=== PATIENT | male | born 1965 | race Caucasian/White ===

== ENCOUNTER 2017-05-02 21:48 | Inpatient (IN) | payer OTHER ==
[~2017-05-02] VITALS: Ht 177.8 cm; Wt 69.7 kg
[~2017-05-02 21:48] MED LIST: TRAM50TA2 PO
[2017-05-02 21:52] VITALS: BP 178/126; PULSE 132; RESP 18; O2SAT 95
--- NOTE | 2017-05-02 22:13 | ED.REPORT ---
HPI-Overdose/Alcohol Toxicity Date of Service May 02, 2017 ED Provider: Dr. Saeid Holt M.D. The patient is a 51 year old male with a medical history including RI, GERD, anxiety, and alcohol abuse who presents to the ED via EMS requesting assistance with alcohol detox. The patient has reportedly been drinking for the past week. He is unsure when he last drank alcohol. The patient is concerned he is "out of his mind," reporting confusion and a headache. He denies suicidal ideation or other symptoms. EMS found the patient with a BP of 160/100, a pulse of 138, and a respiration rate of 97% on RA. The patient has had alcohol detox attempts in the past. Nursing Notes Stated Complaint: DETOX Chief Complaint: Substance Abuse Nursing Notes Reviewed: Yes Allergies: Coded Allergies: No Known Allergies (Unverified Allergy, Unknown, 05/02/17) Scheduled PRN Tramadol (Tramadol) 50 Mg Tablet 50 MG PO TID PRN PRN For Pain General Time Seen by Provider: 22:11 Chief Complaint Other (Alcohol Detox Request) Hx Obtained From: Patient, EMS Arrived By: Ambulance Onset Occurred: 1 week ago Symptom Duration: Since onset Location: : Head Quality: Aching Severity: Current: Moderate Severity: Maximum: Moderate Pertinent Negative: Relieved by nothing Related History: Reports: Alcoholism Immunizations: Tetanus up to date Recent Healthcare: No recent doctor visit Similar Sx Previous: Yes Past Medical History Past Medical History Substance abuse (EtOH)- pt is a longstanding alcoholic Myocardial infarction at age 33 Skull fx at age 29 GERD Anxiety Past Surgical History Denies Family History Denies Smoking History Current Every Day Smoker, Current Some Day Smoker Social History Alcohol Use: >5 per day Drug Use: Denies drug use Ambulatory Status Independent Review of Systems Unable to Obtain ROS Patient condition, Intoxicated Physical Exam Initial Vital Signs Vital Signs (First) Date Time Temp Pulse Resp B/P Pulse Ox O2 Delivery O2 Flow Rate FiO2 05/02/17 21:52 36.6 132 18 178/126 95 05/03/17 00:06 Room Air Initial VS: Reviewed, Vital signs abnormal Head / Eyes: Atraumatic, Normocephalic Neck: Supple, Full range of motion General/Constitutional: Awake, Alert Appearance / Presentation: Positive: Intoxicated Smells of alcohol Respiratory / Chest: Breath sounds NL, Breath sounds = bilat, No respiratory distress Cardiovascular: Regular rhythm, Heart sounds NL Heart Rate / Rhythm: Positive: Tachycardia Abdomen: Soft Tenderness/Guarding/Rebound: Positive: Tender RUQ... Tender liver edge palpable Psychiatric: Not suicidal Patient makes repetitive statements and asks repetitive questions ENT: Airway patent Mouth: Positive: Mucous membranes dry Dry, chapped lips Skin: No rash, Warm, Dry Interpretation & Diagnostics BREATHALYZER: 285 at 22:14 199 at 01:09 BEDSIDE URINE DRUG SCREEN: Negative Lab Results Interpretation Result Diagram: 05/02/17225705/02/17 225 Test 05/02/17 22:58 05/03/17 01:00 White Blood Count 7.4th/mm3 (3.8-10.1) Red Blood Count 4.82mil/mm3 (4.40-5.80) Hemoglobin 15.6g/dL (13.8-17.2) Hematocrit 43.8% (41.0-50.0) Mean Corpuscular Volume 90.9fL (81-100) Mean Corpuscular Hemoglobin 32.4pg (27.0-35.0) Mean Corpuscular Hemoglobin Concent 35.6% (32.0-37.0) Red Cell Distribution Width 12.3% (12.3-15.4) Platelet Count 223bil/L (150-400) Neutrophils (%) (Auto) 56.5% (40-74) Lymphocytes (%) (Auto) 32.2% (14-46) Monocytes (%) (Auto) 10.6% (4-12) Eosinophils (%) (Auto) 0% (0-5) Basophils (%) (Auto) 0.4% (0-3) Prothrombin Time 9.4sec (8.1-12.5) Prothromb Time International Ratio 0.88ratio Sodium Level 142mEq/L (134-144) Potassium Level 4.4mEq/L (3.5-5.2) Chloride Level 97mEq/L (97-108) Carbon Dioxide Level 25mmol/L (18-29) Blood Urea Nitrogen 10mg/dL (6-24) Creatinine 0.90mg/dL (0.76-1.27) Estimat Glomerular Filtration Rate 95mL/min (>59) Glucose Level 100mg/dL (60-99) Calcium Level 9.1mg/dL (8.5-10.1) Phosphorus Level 3.7mg/dL (2.5-4.9) Magnesium Level 1.9mg/dL (1.6-2.6) Total Bilirubin 0.3mg/dL (0.0-1.2) Aspartate Amino Transf (AST/SGOT) 38U/L (0-50) Alanine Aminotransferase (ALT/SGPT) 26U/L (0-44) Alkaline Phosphatase 78U/L (25-150) Total Protein 8.3g/dL (6.4-8.4) Albumin 4.6g/dL (3.4-5.0) Lipase 49U/L (13-60) Hold Blunt Top Tube Received (Received) Hold Urine Received (Received) Lab values outside NL range: no clinical significance. ECG Interpretation ECG Interpretation: Sinus tachycardia rate 113 Time: 22:45 Interpreted by: ED physician Re-Eval/Medical Decision Med Decision/Clinical Course 51-year-old male with chronic alcoholism presents after a 7 day binge. He desires to detox but has had medically complicated detox in the past. He denies any which are related seizures. He has been drinking about 2/5 a day. Banana bag was ordered and labs were drawn. He received the liter of saline with multivitamins. Labs were normal. He was placed on CIWA protocol. He will be admitted to the hospitalist service for detox and then transferred to inpatient if possible. Source of Hx: Old records Re-Evaluation/Progress : Time of Eval: 01:23 Patient Status: Condition improved Re-Evaluation/Progress Note: Patient is tremulous and withdrawing. Discussed with patient lab results, diagnosis, and plan for admit. Patient agrees with plan for care and all questions were addressed. Consultation : Referral / Consult Name: Anthony Oseguera MD Consulted With: Hospitalist Call Returned at: 01:32 Terminal Worker: Agrees with eval, Agrees with plan, Accepts admit Counseled Regarding: Diagnosis, Lab results, Need for admission Discharge & Departure Impression: Primary Impression: Alcohol withdrawal Complication of substance-induced condition: uncomplicated Qualified Code: F10.230 - Alcohol dependence with withdrawal, uncomplicated Disposition: ADMITTED TO HOSPITAL Discharge Condition All VS Reviewed: Yes Condition: Improved Referrals: Joann Kate PA-C (PCP) Scribe Attestation Portions of this note were transcribed by Divina Rivas. I, Dr. Holt, personally performed the history, physical exam, and medical decision-making; I reviewed and confirmed the accuracy of the information in the transcribed note. Signed by: Diamond Anthony, 05/03/2017, 01:50 copies to: Joann Kate PA-C, Howard L MD May 02, 2017 22:13 DIVINA RIVAS May 02, 2017 22:29
[2017-05-02] MEDS ORDERED: Thiamine Inj 100 MG, Folic Acid Inj 1 MG, Magnesium Sulfate 50% Inj 2 GM, Multivitamins... IV ONE ×5 (22:30)
[2017-05-02] MEDS ORDERED: Ondansetron 2 mg/mL 2 mL Inj IVPUSH PRN (23:15)
[2017-05-02 23:26] LABS: INR 0.88 ratio
[2017-05-02 23:29] LABS: BASOPHILS % (AUTO) 0.4 % (0-3); EOSINOPHILS % (AUTO) 0 % (0-5); MONOCYTES % (AUTO) 10.6 % (4-12); Mean Corpuscular Hemoglobin 32.4 pg (27.0-35.0); Mean Corpuscular Volume 90.9 fL (81-100); NEUTROPHILS % (AUTO) 56.5 % (40-74); Platelet Count 223 bil/L (150-400)
[2017-05-02 23:36] LABS: Magnesium 1.9 mg/dL (1.6-2.6); Phosphorus 3.7 mg/dL (2.5-4.9)
[2017-05-03] VITALS (8 sets, daily range): BP systolic 123–172; BP diastolic 67–108; PULSE 92–108; RESP 15–20; O2SAT 97–99
[2017-05-03] MEDS ORDERED: Polyethylene Glycol (PEG) 17 Gm Powder PO PRN (01:35)
--- NOTE | 2017-05-03 01:48 | PCM.HPMED ---
Subjective Date of Service May 03, 2017 Primary Provider: Admitting Physician: Primary Care Physician: Joann Kate PA-C Attending Physician: Admit Status: From the Emergency Department, Full Admit, [facility] Telemetry Chief Complaint: Requesting Alcohol detox History of Present Illness: Armond Carl is a 51 year old male with Coronary artery disease, GERD, anxiety and alcohol abuse who presents to [facility] emergency department via EMS requesting assistance with alcohol detox. The patient has reportedly been drinking for the past week and his last drink was supposedly on Sunday. The patient is concerned he is "out of his mind," reporting confusion and a headache. The patient denies suicidal ideation but thinks he is depressed. The patient has had alcohol detox attempts in the past at [facility] and other facilities and seems to relapse when he is under stress. He is motivated to change his ways because he wants to keep his marriage as his just completed detox herself. Case discussed with Dr Holt, no beds available in the local detox facilities. No labs abnormalities noted. CIWA initiated with plans to admit. Review of Systems: Pertinent positives as noted in HPI. All other systems were reviewed and are negative Allergies Coded Allergies: No Known Allergies (Unverified Allergy, Unknown, 05/02/17) Home Medications From [facility], not yet confirmed Armond Carl. [id number] 06/27/2016 09:55 AM / Carafate 1 gram tablet take 1 tablet by oral route 4 times every day on an empty stomach 1 hour before meals and at bedtime omeprazole 20 mg capsule,delayed release take 2 capsule by oral route 2 times every day 30 minutes to 1 hour before a meal tramadol 50 mg tablet take 1 tablet by oral route every 6 hours as needed PMH Depression GERD Alcoholism with binge drinking Abnormal CT scan with colitis with circumferential wall thickening of the right and proximal transverse colon coronary artery disease. Myocardial infarction at age 33 (details unclear but went AMA from [facility] before further tests were done) No [place] since that time . Surgical History Abdominal surgery as a child after swallowing a nail Family History No history of cardiac disease Social History Hx Alcohol Use: Yes Hx Substance Use: No Smoking Status: Current Every Day Smoker, Current Some Day Smoker Exam Vital Signs Vital Sign - Last Date Time Temp Pulse Resp B/P Pulse Ox O2 Delivery O2 Flow Rate FiO2 05/03/17 00:06 100 20 123/67 97 Room Air 05/02/17 21:52 36.6 Exam General: Alert, Oriented X3, Cooperative, No acute Distress Eyes: PERRLA, Scleral Anicteric Mouth: Mouth Normal, Mucous Membranes Moist/[place] Neck: Supple, no Thyromegaly, trachea central. Chest & Lungs: Clear to auscultation & percussion, No adventitious breath sounds, no crackles, no wheeze Cardiovascular: Normal S1, Normal S2, No Murmurs/Rubs/Gallops, Regular Rate/ Rhythm, Murmur, Other (No JVD, no peripheral edema) Pulses: Radial (present and equal), Dorsalis Pedi (present and equal) Abdomen: Soft, Non-tender, Non-distended, Normoactive bowel tones. Musculoskeletal: Unremarkable. Normal range of motion, no swollen or erythematous joints Extremities: No edema, no cyanosis, no clubbing. Skin: No rashes. Warm and dry, no erythematous areas Neurological: Grossly neurologically intact, has generalized weakness, Normal Speech, Sensation Intact Lymphatic: Lymph nodes Cervical and Axillary not palpable. Lab and Diagnostics Labs Laboratory Tests Test 05/02/17 22:58 05/03/17 01:00 White Blood Count 7.4th/mm3 (3.8-10.1) Red Blood Count 4.82mil/mm3 (4.40-5.80) Hemoglobin 15.6g/dL (13.8-17.2) Hematocrit 43.8% (41.0-50.0) Mean Corpuscular Volume 90.9fL (81-100) Mean Corpuscular Hemoglobin 32.4pg (27.0-35.0) Mean Corpuscular Hemoglobin Concent 35.6% (32.0-37.0) Red Cell Distribution Width 12.3% (12.3-15.4) Platelet Count 223bil/L (150-400) Neutrophils (%) (Auto) 56.5% (40-74) Lymphocytes (%) (Auto) 32.2% (14-46) Monocytes (%) (Auto) 10.6% (4-12) Eosinophils (%) (Auto) 0% (0-5) Basophils (%) (Auto) 0.4% (0-3) Prothrombin Time 9.4sec (8.1-12.5) Prothromb Time International Ratio 0.88ratio Sodium Level 142mEq/L (134-144) Potassium Level 4.4mEq/L (3.5-5.2) Chloride Level 97mEq/L (97-108) Carbon Dioxide Level 25mmol/L (18-29) Blood Urea Nitrogen 10mg/dL (6-24) Creatinine 0.90mg/dL (0.76-1.27) Estimat Glomerular Filtration Rate 95mL/min (>59) Glucose Level 100mg/dL (60-99) Calcium Level 9.1mg/dL (8.5-10.1) Phosphorus Level 3.7mg/dL (2.5-4.9) Magnesium Level 1.9mg/dL (1.6-2.6) Total Bilirubin 0.3mg/dL (0.0-1.2) Aspartate Amino Transf (AST/SGOT) 38U/L (0-50) Alanine Aminotransferase (ALT/SGPT) 26U/L (0-44) Alkaline Phosphatase 78U/L (25-150) Total Protein 8.3g/dL (6.4-8.4) Albumin 4.6g/dL (3.4-5.0) Lipase 49U/L (13-60) Hold Blunt Top Tube Received (Received) Hold Urine Received (Received) Result Diagram: 05/02/17225705/02/172257 Additional Diagnostics: 06/16/2016 PROCEDURE: 1. Esophagogastroduodenoscopy with biopsy. 2. Colonoscopy with biopsy. PREOPERATIVE DIAGNOSIS(ES): Abdominal pain and abnormal CT scan. POSTOPERATIVE DIAGNOSIS(ES): 1. Mild nonerosive gastritis. 2. Normal colonoscopy, status post biopsy. Assessment & Plan Armond Carl is a 51 year old male with Coronary artery disease, GERD, anxiety and alcohol abuse who presents to [facility] emergency department via EMS requesting assistance with alcohol detox 1. Alcohol abuse with Alcohol withdrawal syndrome. Present on admission No reported history of Alcohol withdrawal seizures. Patient has [place] drinking issues. - monitor on telemetry - CIWA protocol continued - Banana bag and Thiamine supplements - traffic ii manager consult to help with resources and placement 2 GERD, Chronic - continue Carafate and Omeprazole - Acetaminophen as needed for mild pain/fever/headache - Bowel regimen as needed - Antiemetic as needed Patient admitted under inpatient status with expected length of stay > 2 midnights for severity of present symptoms, complexities of treatment plan and risk for adverse event . Resuscitation Status: CPR: Attempt Resuscitation Anthony Oseguera MD May 03, 2017 01:48
[2017-05-03] MEDS: 0.9% Sodium Chloride 1,000 ML IV SCH ×3 (02:45→20:59)
[2017-05-03] MEDS: Ondansetron 2 mg/mL 2 mL Inj IVPUSH PRN ×3 (03:12→10:16)
--- NOTE | 2017-05-03 04:12 | NUR ---
Admit Patient admitted to [facility] at 0205. Patient restless in bed, CIWA 23. Valium given per protocol. Admit documentation and med reconciliation completed. Frequent CIWA checks. Continue to monitor.
[2017-05-03] MEDS: Alum-Mag Hydrox-Simeth 30 mL Suspension PO PRN ×2 (05:39→12:15)
[2017-05-03] MEDS: Thiamine Inj 100 MG in 0.9% Sodium Chloride 100 ML IV SCH (08:46)
[2017-05-03] MEDS: Multivit-Miner-Folic Acid-Iron Tablet PO SCH (08:48)
[2017-05-03] MEDS: Heparin 5,000 Unit/mL Inj SUBQ SCH ×2 (08:50→15:44)
--- NOTE | 2017-05-03 12:11 | NUR ---
Social Work- Screening Data: EMR reviewed. Pt is a 51 year old male admitted 05/03/17 for alcohol withdrawal after a 6 day alcohol binge per H&P. Pt's CIWA is 10 at this time. Pt's insurance is [employer]. Pt's PCP is Joann Kate PA-C. SW met with pt at bedside regarding discharge plan, SW role explained. Pt alert and oriented x3. Pt resides in [place] with his where he is independent at baseline. Pt works at [employer]. Pt has no DPOA on file, pt declined information regarding this. Pt requested RAIL EXPRESS CLERK come speak with him about his alcohol use and getting into treatment. SW met with pt at bedside regarding treatment and pt's alcohol use. Pt was open and willing to speak with RAIL EXPRESS CLERK at bedside. Pt reports his is in treatment at this time at [facility]. She will be transitioning to IOP May 12. Pt reports he is connected and interested in IOP through the [facility] and reports that he has a contact there named Jaun who will assist him with coordination of this. Pt spoke briefly of his history of inpt treatment at [facility] where he almost completed treatment but was ultimately unsuccessful. Pt states he is very motivated for treatment and acknowledges that his marriage is on the line. Pt believes that he and his should go through treatment together as a team to be successful. SW validated this. Pt states his mother is a support as well and she is on her way to [place] from [place] at this time. Pt confirmed his mother will be able to assist him with treatment and coordination of IOP as well. SW encouraged pt to call Jaun at the [facility] while he is in the hospital to make the connection and facilitate treatment in a timely manner. Pt agreeable to this but did not dial while RAIL EXPRESS CLERK was in the room. Pt is not connected with AA at this time and "does not believe in AA." SW offered CDP through [facility] which pt adamantly declined. Pt has spoken with his PCP Joann Kate regarding his drinking and his history of depression. Pt states PCP prescribed him gabapentin to assist with cravings and mood but he was ultimately unsuccessful as he wouldn't take it regularly and felt it wasn't helpful. SW explored the trigger for pt's binge. Pt states that he felt the pressure of being unsuccessful with sobriety and felt that he had not made enough progress before his 's return from inpatient on May 12. Pt has struggled to be honest with his and the anxiety and fear of being honest with her about his drinking and alcohol use contributed to his drinking binge. Pt acknowledges that he is lacking in coping skills and that drinking is his coping skill of choice at this time. Pt is hopeful to increase skills at treatment. Pt reports his withdrawal symptoms as increased nausea, increased anxiety, and sweating. Pt has a history of depression and anxiety. Pt reports that this contributes to his drinking as well and he is hopeful IOP will assist with this. Pt agreeable to MH resources given at bedside including Crisis Line. Pt denies SI or HI at this time. SW will continue to follow. Pt will discharge home with family to transport via POV or he will walk home. No additional discharge needs identified. SW will continue to follow. Assessment: Pt who is independent at baseline. Plan: Pt has plan in place to obtain IOP treatment through [facility]. SW encouraged pt to contact [facility] during this admission to facilitate treatment. Pt is motivated to change. Pt's history of depression and anxiety contribute to his alcohol use, SW provided MH resources to pt at bedside. Pt to discharge home with mom to transport POV or walk home, no discharge needs identified. SW will continue to follow. EDILBERTO Ervin
[2017-05-03] MEDS ORDERED: GABA-504 PO (17:14)
[2017-05-03] MEDS ORDERED: OMEP20CA11 PO (17:14)
[2017-05-03] MEDS ORDERED: CHOL100045 PO (17:17)
[2017-05-03] MEDS ORDERED: VIT1TABL83 PO (17:17)
--- NOTE | 2017-05-03 19:27 | NUR ---
CIWA patient's CIWA ranging 8-12 throughout day. heart rate 100-120's at rest and 130-140's with activity today. patient's complaints have been increased anxiety, agitation and restlessness. patient having a difficult time grasping the current plan of care and detox regime, comparing current plan of care with previous outpatient rehab programs he's been through. I've attempted to educate patient on the difference between assisted with his current physical withdrawal symptoms and rehab/recover programs. But due to patient's withdrawals he's not very receptive to education and will need to be reinforced.
--- NOTE | 2017-05-03 23:12 | NUR ---
anxiety/confusion C/o severe anxiety at the start of the shift. Stated he wasn't happy with how "stoned" the Valium makes him feel and requesting lorazepam. Also, c/o joint pain and requesting home dose of tramadol. Patient alert and oriented, but noted some confusion regarding treatment plan and not really processing information due to anxiety. MD contacted and stated no change in orders for withdrawal at this time. Discussed this with patient and he agreed to continue with current plan for tonight. CIWA 10. Given Valium and fell asleep. Currently resting calmly. Mom is at bedside.
[2017-05-04 00:30] VITALS: BP 142/84; PULSE 88; RESP 16; O2SAT 96
[2017-05-04] MEDS: Heparin 5,000 Unit/mL Inj SUBQ SCH ×3 (02:49→08:42)
[2017-05-04 05:05] VITALS: PULSE 63
[2017-05-04 05:24] LABS: BASOPHILS % (AUTO) 0.4 % (0-3); EOSINOPHILS % (AUTO) 1.2 % (0-5); MONOCYTES % (AUTO) 17.2 % (4-12); Mean Corpuscular Hemoglobin 32.7 pg (27.0-35.0); Mean Corpuscular Volume 92.9 fL (81-100); NEUTROPHILS % (AUTO) 52.5 % (40-74); Platelet Count 177 bil/L (150-400)
[2017-05-04 05:30] VITALS: BP 147/88; PULSE 67; RESP 16; O2SAT 98
[2017-05-04 05:47] LABS: Magnesium 2.5 mg/dL (1.6-2.6); Phosphorus 2.7 mg/dL (2.5-4.9)
[2017-05-04] MEDS: Alum-Mag Hydrox-Simeth 30 mL Suspension PO PRN (06:35)
--- NOTE | 2017-05-04 07:16 | NUR ---
Mentation Slept soundly for about 6 hours after receiving dose of IV Valium. CIWA 5. Up to bathroom with standby assist. IV infiltrated and IVT notified about restarting this. Mom at bedside.
[2017-05-04] MEDS: 0.9% Sodium Chloride 1,000 ML IV SCH (07:34)
[2017-05-04 08:00] VITALS: PULSE 95
[2017-05-04] MEDS: Thiamine Inj 100 MG in 0.9% Sodium Chloride 100 ML IV SCH (08:30)
[2017-05-04] MEDS: Ondansetron 2 mg/mL 2 mL Inj IVPUSH PRN (08:40)
[2017-05-04 09:13] VITALS: BP 172/107; PULSE 63; RESP 18; O2SAT 100
--- NOTE | 2017-05-04 10:15 | NUR ---
Social Work: Readiness for Discharge D: EMR reviewed. Pt is on day 1 of hospitalization. Please see SW Screening 05/03. SW offered CDP through [facility] which pt adamantly declined. Pt has spoken with his PCP Joann Kate regarding his drinking and his history of depression. Pt acknowledges that he is lacking in coping skills and that drinking is his coping skill of choice at this time. Pt is hopeful to increase skills at treatment. Pt reports his withdrawal symptoms as increased nausea, increased anxiety, and sweating. Pt has a history of depression and anxiety. Pt reports that this contributes to his drinking as well and he is hopeful IOP will assist with this. Pt agreeable to MH resources given at bedside including Crisis Line. Pt denies SI or HI at this time. Pt will discharge home with family to transport via POV or he will walk home. No additional discharge needs identified. A: Pt who is independent at baseline. P: Pt has plan in place to obtain IOP treatment through [facility]. SW encouraged pt to contact [facility] during this admission to facilitate treatment. Pt is motivated to change. Pt's history of depression and anxiety contribute to his alcohol use, SW provided MH resources 05/03. Pt to discharge home with mom to transport POV or walk home, no discharge needs identified. SW will continue to follow. EDILBERTO Brown
[2017-05-04] MEDS: Multivit-Miner-Folic Acid-Iron Tablet PO SCH (10:55)
--- NOTE | 2017-05-04 11:23 | PCM.DIMED ---
Discharge Instructions Date of Service May 04, 2017 Dates of Hospitalization May 03, 2017 at 01:49 Discharge Diagnosis Discharge Diagnosis Alcohol withdrawal Diet Discharge Diet: No restrictions Activity Discharge Activity: No restrictions Patient Instructions Patient Instructions You were hospitalized with mild symptoms of withdrawal. You underwent brief course of hospitalization for symptoms controls. Please note that you need to follow with your [facility] to continue your rehab for alcohol cessation. Follow-up plan Please also follow up with your primary doctor in 2 weeks Follow-up Provider: Joann Kate PA-C Follow-up with PCP in: 2 weeks Giovani Silva MD May 04, 2017 11:23
--- NOTE | 2017-05-04 11:43 | NUR ---
Discharge Pt had bout of nausea this AM. Zofran 8mg IV given, pt reports no nausea half hour later. Pt tolerating PO following zofran. CIWA 11 this AM, 10mg Valium IV given, nausea abated. Pt very anxious to be dc'd today. The pt's is in rehab in [place] and he wants to go visit her. Pt is pacing and very restless. Pt dc'd own tele to take a shower. CIWA late morning down to 5 due to anxiety and restlessness only. Pt discharged home at 11:40. Pt off floor via ambulation with all belongings in the company of the nurse and his mother to private vehicle. Pt was given ed materials on withdraw, a hospitalization note for work and follow up instructions. Pt voiced understanding. Addendum: 05/04/17 at 1154 by JUAN ROSE RN Pt's IV started again this AM, IV meds for withdraw and nausea given. did not realize thiamine was in the fridge, by the time it was realized, the pt had pulled out his IV and then was discharged.
--- NOTE | 2017-05-04 14:02 | NUR ---
Social Work: Discharge D: Please review initial SW screening on 05/03. EMR reviewed. Pt is on day 1 of hospitalization. Please see SW Screening 05/03. SW offered CDP through [facility] which pt adamantly declined. Pt has spoken with his PCP Joann Kate regarding his drinking and his history of depression. Pt acknowledges that he is lacking in coping skills and that drinking is his coping skill of choice at this time. Pt agreeable to MH resources given at bedside including Crisis Line. Pt denies SI or HI at this time. Pt will discharge home with family to transport via POV or he will walk home. No additional discharge needs identified. A: Pt who is independent at baseline. P: Pt has plan in place to obtain IOP treatment through [facility]. SW encouraged pt to contact [facility] during this admission to facilitate treatment. Pt to discharge home with mom to transport POV or walk home, no discharge needs identified. SW will continue to follow. EDILBERTO Brown
--- NOTE | 2017-05-04 22:16 | PCM.DC.MED ---
Discharge Summary Date of Service May 04, 2017 Dates of Hospitalization Date of Hospital Admission May 03, 2017 at 01:49 Date of Discharge: May 04, 2017 Providers: Admitting Physician: Anthony Oseguera MD Primary Care Physician: Joann Kate PA-C Attending Physician: Anthony Oseguera MD Diagnosis at Time of Discharge Diagnosis at Time of Discharge Etoh withdrawal Procedures Other Diagnostics 06/16/2016 PROCEDURE: 1. Esophagogastroduodenoscopy with biopsy. 2. Colonoscopy with biopsy. PREOPERATIVE DIAGNOSIS(ES): Abdominal pain and abnormal CT scan. POSTOPERATIVE DIAGNOSIS(ES): 1. Mild nonerosive gastritis. 2. Normal colonoscopy, status post biopsy. Brief History HPI obtained by on 05/03 Armond Carl is a 51 year old male with Coronary artery disease, GERD, anxiety and alcohol abuse who presents to [facility] emergency department via EMS requesting assistance with alcohol detox. The patient has reportedly been drinking for the past week and his last drink was supposedly on Sunday. The patient is concerned he is "out of his mind," reporting confusion and a headache. The patient denies suicidal ideation but thinks he is depressed. The patient has had alcohol detox attempts in the past at [facility] and other facilities and seems to relapse when he is under stress. He is motivated to change his ways because he wants to keep his marriage as his just completed detox herself. Case discussed with Dr Holt, no beds available in the local detox facilities. No labs abnormalities noted. CIWA initiated with plans to admit. Hospital Course Armond Carl is a 51 year old male with Coronary artery disease, GERD, anxiety and alcohol abuse who presents to [facility] emergency department via EMS requesting assistance with alcohol detox 1. Alcohol abuse with Alcohol withdrawal syndrome. pt was hospitalized with mild withdrawal sx, stayed one day on CIWA protocol. no signs of DT or seizure observed. tolerated diet well, sx were controlled without benzo upon d/c. Plan is to FU with outpatient detox which pt already went to. patient's psychosocial status was unstable as patient's currently in another detox. it was noted that patient has good support(mother), discharged to mother's place upon d/c 2 GERD, Chronic, continue Carafate and Omeprazole Exam Vital Signs (Last) Date Time Temp Pulse Resp B/P Pulse Ox O2 Delivery O2 Flow Rate FiO2 05/04/17 09:13 36.7 63 18 172/107 100 Room Air 05/03/17 02:17 2 Exam NAD, comfortable PERRLA, MMM, no tongue fasciculation RRR nl s1 s2 no mrg CTAB no w,c S,ND,NT,BS+ warm, no edema Test 05/02/17 22:58 05/03/17 01:00 05/03/17 02:02 05/04/17 04:50 Prothrombin Time 9.4sec (8.1-12.5) Prothromb Time International Ratio 0.88ratio Lipase 49U/L (13-60) Hold Blunt Top Tube Received (Received) Hold Urine Received (Received) Ammonia 43ug/dL (18-53) White Blood Count 8.3th/mm3 (3.8-10.1) Red Blood Count 4.53mil/mm3 (4.40-5.80) Hemoglobin 14.8g/dL (13.8-17.2) Hematocrit 42.1% (41.0-50.0) Mean Corpuscular Volume 92.9fL (81-100) Mean Corpuscular Hemoglobin 32.7pg (27.0-35.0) Mean Corpuscular Hemoglobin Concent 35.2% (32.0-37.0) Red Cell Distribution Width 12.2% (12.3-15.4) Platelet Count 177bil/L (150-400) Neutrophils (%) (Auto) 52.5% (40-74) Lymphocytes (%) (Auto) 28.3% (14-46) Monocytes (%) (Auto) 17.2% (4-12) Eosinophils (%) (Auto) 1.2% (0-5) Basophils (%) (Auto) 0.4% (0-3) Sodium Level 141mEq/L (134-144) Potassium Level 4.0mEq/L (3.5-5.2) Chloride Level 101mEq/L (97-108) Carbon Dioxide Level 26mmol/L (18-29) Blood Urea Nitrogen 9mg/dL (6-24) Creatinine 0.78mg/dL (0.76-1.27) Estimat Glomerular Filtration Rate 112mL/min (>59) Glucose Level 103mg/dL (60-99) Calcium Level 9.4mg/dL (8.5-10.1) Phosphorus Level 2.7mg/dL (2.5-4.9) Magnesium Level 2.5mg/dL (1.6-2.6) Total Bilirubin 1.3mg/dL (0.0-1.2) Aspartate Amino Transf (AST/SGOT) 38U/L (0-50) Alanine Aminotransferase (ALT/SGPT) 26U/L (0-44) Alkaline Phosphatase 71U/L (25-150) Total Protein 7.2g/dL (6.4-8.4) Albumin 4.1g/dL (3.4-5.0) Discharge Medications Discharge Medications Cholecalciferol (Vitamin D3) (Vitamin D) 1,000 Unit Capsule 1,000 UNIT PO DAILY (Reported) Gabapentin (Gabapentin) 400 Mg Capsule 400 MG PO TID (Reported) Omeprazole (Omeprazole) 20 Mg Capsule.dr 20 MG PO BID (Reported) Vit B Comp/C/FA/Iron/Vit E (Vitamin B Complex Tablet) 1 Each Tablet 1 EACH PO DAILY (Reported) As needed Tramadol (Tramadol) 50 Mg Tablet 50-100 MG PO BID PRN PRN For Pain (Reported) Followup Plan Disposition: home Follow-up plan Please also follow up with your primary doctor in 2 weeks Discharge Diet: No restrictions Discharge Activity: No restrictions Patient Instructions You were hospitalized with mild symptoms of withdrawal. You underwent brief course of hospitalization for symptoms controls. Please note that you need to follow with [facility] [facility] [place] for [place] cessation. Follow-up Provider: Joann Kate PA-C Follow-up with PCP in: 2 weeks Time spent 65min Giovani Silva MD May 04, 2017 22:16
== END 2017-05-04 11:40 | disposition home or self-care (01) | DRG 897 ==
LOC: SED 21:48 → EDUNIT# 21:48 → EDBD 21:48 → OSC 05-03 01:49
PROVIDERS: ADMIT Hospitalist; ATTEND Hospitalist
DX: F10.239 Alcohol dependence with withdrawal, unspecified (principal); F17.200 Nicotine dependence, unspecified, uncomplicated; I25.10 Atherosclerotic heart disease of native coronary artery without angina pectoris; K21.9 Gastro-esophageal reflux disease without esophagitis; Y90.8 Blood alcohol level of 240 mg/100 ml or more; I25.2 Old myocardial infarction